=== PATIENT | female | born 1960 | race Two or more races ===

== ENCOUNTER 2020-02-23 20:53 | Emergency (ER) | payer OTHER ==
[2020-02-23 21:09] VITALS: BP 137/62; PULSE 86; TEMP 97.3; BMI 21.9
[2020-02-23] MEDS ORDERED: ACETAMINOPHEN 500 MG TABLET (FP) PO ONE (21:29)
[2020-02-23] MEDS ORDERED: METHOCARBAMOL 500 MG TABLET PO ONE (21:31)
[2020-02-23] MEDS ORDERED: ACETAMINOPHEN 325 MG TABLET (FP) ONE (21:39)
[2020-02-23] MEDS ORDERED: METHOCARBAMOL 500 MG TABLET ONE (21:40)
[2020-02-23] MEDS ORDERED: IBUPROFEN 600 MG TABLET (FP) PO ONE ×2 (23:19→23:25)
== END 2020-02-23 23:32 | disposition home or self-care (01) ==
LOC: JER 20:53
DX: M54.5 Low back pain (principal); R51.9 Headache, unspecified
CPT/HCPCS: 70450-TC; 99284-25